=== PATIENT | female | born 1940 | race African-American/Black ===

== ENCOUNTER 2017-04-22 09:30 | Outpatient (RCR) | payer MEDICARE, OTHER | END 2017-04-22 12:13 | disposition home or self-care (01) | PROVIDERS: ATTEND Family Medicine | DX: M54.2 Cervicalgia (principal) ==

== ENCOUNTER → 2017-09-03 | Outpatient (CLI) | payer MEDICARE, OTHER ==
--- NOTE | 2017-09-03 08:31 | Diagnostic Imaging Report ---
CLINICAL INDICATION: Patient with constipation and lower abdominal pain x1 week. Patient has surgical history of hysterectomy, appendectomy, cholecystectomy and tube from brain to abdomen. EXAMINATION: CT scan of the abdomen and pelvis performed without IV or enteric contrast. Coronal and sagittal reformatted images are created. COMPARISON: None. FINDINGS: There is minimal atelectasis involving both lung bases. There are small degenerative spurs involving both hips. There is hypertrophic spurs involving the lumbar spine and lower lumbar spine facet arthropathy. There is degenerative spurring of both sacroiliac joints. There is levoscoliosis of the lumbar spine. Likely [employer]IENT [employer]PLICATION SUPPORT ENGINEER shunt tubing seen overlying the left of midline anterior aspect of the abdomen and enters into the right intra-abdominal region with the tip overlying the left lower abdominal region. There is no fluid collection seen adjacent to the catheter. There is no evidence of intra-abdominal free air or free fluid. The gallbladder is surgically resected. The liver, spleen, pancreas, and adrenal glands are unremarkable. There is a roughly 2.4 cm cyst involving the [id number] portion of the right kidney. There are no urinary tract stones seen. Both kidneys are unremarkable. The bladder is fluid distended with no gross abnormality. There is diverticulosis seen involving the sigmoid colon, and descending colon and ascending colon with no CT evidence of diverticulitis. Appendix has been surgically resected. There is no evidence of intestinal obstruction or abnormal appearing bowel wall. Stomach is unremarkable. There is no lymphadenopathy. There is atherosclerotic disease involving the abdominal aorta and bilateral iliac arteries with no aneurysmal dilation. Extra-abdominal and extrapelvic soft tissue structures show no significant abnormality. The uterus is surgically resected. The adnexal regions are not visualized on this exam. IMPRESSION: 1: There is no evidence of acute abdominal or pelvic process. 2: Right renal cyst. Otherwise, both kidneys are unremarkable. There is no urinary tract stone. 3: Diverticulosis with no CT evidence of diverticulitis. 4: CLIENT APPLICATION SUPPORT ENGINEER shunt tubing seen with no evidence of CSF -mindy. 5: Postop changes to the abdomen and pelvis, as described above. Dictated by: Dictated on workstation # [id number]
== END ==
LOC: RAD 07:25
PROVIDERS: ATTEND Family Medicine
DX: K59.00 Constipation, unspecified (principal); N28.1 Cyst of kidney, acquired; K57.30 Diverticulosis of large intestine without perforation or abscess without bleeding; Z98.2 Presence of cerebrospinal fluid drainage device; Z90.710 Acquired absence of both cervix and uterus; Z90.49 Acquired absence of other specified parts of digestive tract
CPT/HCPCS: 74176

== ENCOUNTER 2018-04-25 09:38 | Outpatient (RCR) | payer MEDICARE, OTHER ==
[2018-04-14] VITALS (7 sets, daily range): BP systolic 141–194; BP diastolic 57–83
[2018-04-14 17:02] LABS: HEMOGLOBIN 9.9 G/DL (11.5-16.0)
[2018-04-16] MEDS: diphenhydrAMINE 25 MG TAB (BENADRYL) PO SCH (10:50)
[2018-04-16] MEDS: ACETAMINOPHEN 325 MG TABLET PO SCH (10:51)
[2018-04-16] MEDS: IRON SUCROSE 200 MG/10 ML (VENOFER) VIAL IV SCH (10:54)
[2018-04-16 11:35] VITALS: BP 176/76
[2018-04-18] MEDS: diphenhydrAMINE 25 MG TAB (BENADRYL) PO SCH (10:02)
[2018-04-18] MEDS: ACETAMINOPHEN 325 MG TABLET PO SCH (10:03)
[2018-04-18] MEDS: IRON SUCROSE 200 MG/10 ML (VENOFER) VIAL IV SCH (10:04)
[2018-04-18 10:35] VITALS: BP 152/70
[2018-04-21 10:00] VITALS: BP 177/72
[2018-04-21] MEDS: ACETAMINOPHEN 325 MG TABLET PO SCH (10:05)
[2018-04-21] MEDS: diphenhydrAMINE 25 MG TAB (BENADRYL) PO SCH (10:05)
[2018-04-21] MEDS: IRON SUCROSE 200 MG/10 ML (VENOFER) VIAL IV SCH (10:05)
[2018-04-23] MEDS: diphenhydrAMINE 25 MG TAB (BENADRYL) PO SCH (09:40)
[2018-04-23] MEDS: ACETAMINOPHEN 325 MG TABLET PO SCH (09:41)
[2018-04-23] MEDS: IRON SUCROSE 200 MG/10 ML (VENOFER) VIAL IV SCH (09:45)
[2018-04-23 10:35] VITALS: BP 190/76
[~2018-04-25] VITALS: Ht 149.9 cm; Wt 65.8 kg
[~2018-04-25 09:38] MED LIST: ACETAMINOPHEN 500 MG TAB (TYLENOL) ONE; ACETAMINOPHEN 500 MG TAB (TYLENOL) PO ONE; ALLO100T PO; ASPI-586 PO; ATOR10TA66 PO; CARV3.122 PO; CLOP75TA28 PO; FAMO20TA3 PO; FERR325T18 PO; FURO-125 PO; FUROSEMIDE 40 MG/4 ML INJ (LASIX) IV ONE; FUROSEMIDE 40 MG/4 ML INJ (LASIX) ONE; GABA-486 PO; HYDR-3923 PO; LATA7.5D OU; LOSA100T8 PO; MIRT15TA6 PO; NS IV 500 ML 500 ML IV SCH; NS IV 500 ML 500 ML ONE; TIMO5SOL10 OU; TOPI25TA10 PO; diphenhydrAMINE 25 MG TAB (BENADRYL) PO ONE
[2018-04-25 09:45] VITALS: BP 163/65
[2018-04-25] MEDS: diphenhydrAMINE 25 MG TAB (BENADRYL) PO SCH (09:54)
[2018-04-25] MEDS: ACETAMINOPHEN 325 MG TABLET PO SCH (09:54)
[2018-04-25] MEDS: IRON SUCROSE 200 MG/10 ML (VENOFER) VIAL IV SCH (10:04)
== END 2018-04-25 13:32 | disposition home or self-care (01) ==
LOC: SDC 09:38
PROVIDERS: ATTEND Family Medicine
DX: D50.9 Iron deficiency anemia, unspecified (principal)
CPT/HCPCS: 36415; 36430; 85014; 85018; 86850; 86900; 86901; 86920; 96365; 96374

== ENCOUNTER → 2020-02-23 | Outpatient (CLI) | payer MEDICARE, OTHER ==
[~2020-02-23] MED LIST changes: -ACETAMINOPHEN 500 MG TAB (TYLENOL) ONE; -ACETAMINOPHEN 500 MG TAB (TYLENOL) PO ONE; -FUROSEMIDE 40 MG/4 ML INJ (LASIX) IV ONE; -FUROSEMIDE 40 MG/4 ML INJ (LASIX) ONE; +LOSA100T57 PO; -LOSA100T8 PO; -NS IV 500 ML 500 ML IV SCH; -NS IV 500 ML 500 ML ONE; -diphenhydrAMINE 25 MG TAB (BENADRYL) PO ONE
--- NOTE | 2020-02-23 10:55 | Diagnostic Imaging Report ---
Clinical indication: Patient with sternal pain and neck pain. Patient has lump on neck and has shunt. Exams: 1: X-ray of the sternum, AP and lateral views. 2: X-ray of the neck soft tissue, 2 views. COMPARISON: None. FINDINGS: Shunt tubing is seen overlying the right side of the head and neck region and anterior left chest region. There is no gross discontinuity of the shunt tubing, as visualized. Sternum shows no significant abnormality. There is no fracture or bony destructive process. There are hypertrophic spurs involving the visualized portion of the thoracic spine. There is cervical spine vertebral body spurs and facet arthropathy seen. There is severe loss of disk space height at C3-C4 level and moderate loss at the C5-C6 level. There is no prevertebral soft tissue swelling. IMPRESSION: 1: Visualized portions of the sternum shows no significant abnormality. If there is continued concern for sternal abnormality, then a CT scan would better evaluate. 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 If there is continued concern for left neck lump, then CT scan of the neck soft tissue with contrast would better evaluate. 3: Incompletely visualized shunt tubing with no gross abnormality is visualized. Dictated by: Dictated on workstation # [id number]
== END ==
LOC: RAD 09:33
PROVIDERS: ATTEND Nurse Practitioner Family
DX: M47.812 Spondylosis without myelopathy or radiculopathy, cervical region (principal); R22.1 Localized swelling, mass and lump, neck; R07.89 Other chest pain; Z98.2 Presence of cerebrospinal fluid drainage device
CPT/HCPCS: 70360; 71120

== ENCOUNTER → 2020-03-03 | Outpatient (CLI) | payer MEDICARE, OTHER ==
--- NOTE | 2020-03-03 13:45 | Diagnostic Imaging Report ---
PROCEDURE: CT neck soft tissue without contrast. TECHNIQUE: Multiple contiguous axial images were obtained through the neck without the use of intravenous contrast. Auto Exposure Controls were utilized during the CT exam to meet ALARA standards for radiation dose reduction. INDICATION: Lumps in the anterior neck. COMPARISON: No prior studies are available for comparison. FINDINGS: Overall quality of study is limited without intravenous contrast. Visualized intracranial structures do show some ventriculomegaly. Patient has a [employer]ING [employer]ERSON shunt with shunt tubing coursing along the right neck subcutaneous tissues. The posterior nasopharynx is unremarkable. Oropharynx is unremarkable. Parapharyngeal fat planes are preserved. The epiglottis and larynx are unremarkable. No discrete thyroid mass is detected. Bilateral submandibular and parotid glands appear to be symmetric. No definite cervical or supraclavicular lymphadenopathy is seen. No fluid collection is identified. IMPRESSION: Unremarkable noncontrast CT soft tissue neck study. Dictated by: Dictated on workstation # [id number]
== END ==
LOC: RAD 12:38
PROVIDERS: ATTEND Nurse Practitioner Family
DX: R22.1 Localized swelling, mass and lump, neck (principal)
CPT/HCPCS: 70490

== ENCOUNTER → 2022-10-05 | Outpatient (CLI) | payer MEDICARE, OTHER ==
[~2022-10-05] MED LIST changes: +MIRT-68 PO; -MIRT15TA6 PO
--- NOTE | 2022-10-05 17:31 | Diagnostic Imaging Report ---
Nasal bones 3 views INDICATION: Nasal pain. COMPARISON: None available. FINDINGS AND IMPRESSION: 1. 3 views of the nasal bones were obtained. There is no acute depressed nasal bone fracture. 2. Right-sided SKI MAKER shunt catheter is noted. Dictated by: Dictated on workstation # [id number]
== END ==
LOC: RAD 09:51
PROVIDERS: ATTEND Nurse Practitioner Family
DX: J34.89 Other specified disorders of nose and nasal sinuses (principal)
CPT/HCPCS: 70160